=== PATIENT | female | born 1955 | race African-American/Black ===

== ENCOUNTER 2019-08-04 04:39 | Emergency (ER) | payer MEDICARE ==
[~2019-08-04] VITALS: Ht 162.6 cm; Wt 70.0 kg
[2019-08-04] MEDS ORDERED: AMLO5TAB9 PO (05:09)
[2019-08-04] MEDS ORDERED: CARV3 PO (05:09)
[2019-08-04] MEDS ORDERED: DULO40CA2 PO (05:09)
[2019-08-04 06:51] VITALS: BP 190/95
[2019-08-04] MEDS ORDERED: KETOROLAC TROMETHAMINE 30 MG/ML VIAL IM ONE (07:00)
[2019-08-04] MEDS ORDERED: LIDOCAINE 5% TRANSDERMAL PATCH TD ONE (07:00)
[2019-08-04] MEDS ORDERED: ACETAMINOPHEN 500 MG TABLET PO ONE (07:00)
== END 2019-08-04 07:35 | disposition home or self-care (01) ==
LOC: EMS 04:39 → EDSEX 04:39 → EMS 07:35
DX: G89.29 Other chronic pain (principal); M54.5 Low back pain; F17.210 Nicotine dependence, cigarettes, uncomplicated; I10 Essential (primary) hypertension; F32.9 Major depressive disorder, single episode, unspecified; Z79.899 Other long term (current) drug therapy
CPT/HCPCS: 96372; 99283; 99406; J1885

== ENCOUNTER 2019-08-28 13:47 | Emergency (ER) | payer MEDICARE ==
[~2019-08-28] VITALS: Ht 154.9 cm; Wt 61.4 kg
[~2019-08-28 13:47] MED LIST: AMLO5TAB9 PO; CARV3 PO; DULO40CA2 PO
[2019-08-28 15:10] VITALS: BP 142/81
[2019-08-28 15:27] LABS: CALCIUM, TOTAL 7.8 mg/dL (8.8-10.5); CREATININE 1.28 mg/dL (0.60-1.30); POTASSIUM 3.6 mmol/L (3.5-5.1)
[2019-08-28 15:32] LABS: ALBUMIN 3.7 g/dL (3.4-5.0); BILIRUBIN,TOTAL 0.5 mg/dL (0.1-1.0)
== END 2019-08-28 15:25 | disposition home or self-care (01) ==
LOC: EMS 13:48
DX: J44.9 Chronic obstructive pulmonary disease, unspecified (principal); M54.5 Low back pain; G89.29 Other chronic pain; I10 Essential (primary) hypertension; F17.210 Nicotine dependence, cigarettes, uncomplicated; Z20.828 Contact with and (suspected) exposure to other viral communicable diseases
CPT/HCPCS: 36415; 80053; 87635; 99283; G0480

== ENCOUNTER 2019-10-02 21:10 | Emergency (ER) | payer MEDICARE ==
[~2019-10-02] VITALS: Ht 162.6 cm; Wt 50.0 kg
[2019-10-02] MEDS ORDERED: ACETAMINOPHEN 500 MG TABLET PO ONE (23:00)
[2019-10-02 23:01] VITALS: BP 137/93
== END 2019-10-02 23:11 | disposition home or self-care (01) ==
LOC: EMS 21:11
DX: S00.11XA Contusion of right eyelid and periocular area, initial encounter (principal); I10 Essential (primary) hypertension; F17.210 Nicotine dependence, cigarettes, uncomplicated; Y04.2XXA Assault by strike against or bumped into by another person, initial encounter; Y93.89 Activity, other specified; Y92.89 Other specified places as the place of occurrence of the external cause; Y99.8 Other external cause status

== ENCOUNTER 2019-12-03 12:46 | Emergency (ER) | payer MEDICARE ==
[~2019-12-03 12:46] MED LIST changes: +AMLO-257 PO; -AMLO5TAB9 PO; -DULO40CA2 PO
== END 2019-12-03 13:02 | disposition left against medical advice (07) ==
LOC: EMS 12:49
DX: F10.129 Alcohol abuse with intoxication, unspecified (principal); Y90.0 Blood alcohol level of less than 20 mg/100 ml; Z53.21 Procedure and treatment not carried out due to patient leaving prior to being seen by health care provider